=== PATIENT | male | born 1930 | race Caucasian/White ===

== ENCOUNTER 2017-08-07 09:39 | Day surgery (SDC) | payer MEDICARE, OTHER ==
[~2017-08-07] VITALS: Ht 180.3 cm; Wt 77.3 kg
[2017-08-07] MEDS ORDERED: SODIUM CHLORIDE 0.9% 1,000 ML IV ONE (10:17)
[2017-08-07] MEDS ORDERED: LEVO50TA5 PO (10:20)
[2017-08-07] MEDS ORDERED: PRAV40TA2 PO (10:20)
[2017-08-07] MEDS ORDERED: OMEG-133 PO (10:32)
[2017-08-07] MEDS ORDERED: CHOL100011 PO (10:32)
[2017-08-07] MEDS ORDERED: MULT1TAB19 PO (10:32)
[2017-08-07 10:37] VITALS: BP 162/80
[2017-08-07] MEDS ORDERED: FENTANYL PF 100 MCG/2ML ONE (11:26)
[2017-08-07] MEDS ORDERED: TICAGRELOR 90 MG TABLET ONE (11:26)
[2017-08-07] MEDS ORDERED: VERAPAMIL 2.5 MG/ML, 2ML ONE (11:26)
[2017-08-07] MEDS ORDERED: MIDAZOLAM 1 MG/ML, 5ML ONE (11:26)
[2017-08-07] MEDS ORDERED: HEPARIN 1,000 UNITS/ML, 10ML ONE (11:27)
[2017-08-07] MEDS ORDERED: BIVALIRUDIN 250 MG ONE (11:27)
[2017-08-07] MEDS ORDERED: LIDOCAINE 2%, 20ML ONE (11:27)
== END 2017-08-07 15:36 | disposition home or self-care (01) ==
LOC: CACL 09:39
PROVIDERS: ATTEND Internal Medicine Cardiovascular Disease
DX: I25.10 Atherosclerotic heart disease of native coronary artery without angina pectoris (principal); N18.3 Chronic kidney disease, stage 3 (moderate); E78.5 Hyperlipidemia, unspecified; I12.9 Hypertensive chronic kidney disease with stage 1 through stage 4 chronic kidney disease, or unspecified chronic kidney disease; E03.9 Hypothyroidism, unspecified
CPT/HCPCS: 93454; 99156; C1769; C1894; J1644; J2250; J3010; J3490; Q9967; J0583